=== PATIENT | female | born 1985 | race African-American/Black ===

== ENCOUNTER 2023-04-29 04:30 | Emergency (ER) | payer MEDICAID ==
[~2023-04-29] VITALS: Ht 172.7 cm; Wt 138.8 kg
[2023-04-29 04:52] VITALS: O2SAT 97
[2023-04-29] MEDS ORDERED: LIDOCAINE HCL 1% 20ML VIAL (Pyxis) INJ INFIL ONE (05:30)
[2023-04-29 08:15] VITALS: BP 148/92; PULSE 88; RESP 18; TEMP 98.7
== END 2023-04-29 08:34 | disposition home or self-care (01) ==
LOC: ER 05:20
DX: S01.81XA Laceration without foreign body of other part of head, initial encounter (principal); Y04.0XXA Assault by unarmed brawl or fight, initial encounter; Y93.89 Activity, other specified; Y92.89 Other specified places as the place of occurrence of the external cause; Y99.8 Other external cause status
CPT/HCPCS: 12011; 99282; J3490; Z7610

== ENCOUNTER 2025-04-12 06:18 | Emergency (ER) | payer MEDICAID, OTHER ==
[~2025-04-12] VITALS: Ht 170.2 cm; Wt 109.0 kg
[~2025-04-12 06:18] MED LIST: BACI28OI9 TP; NAPR-1486 MT
[2025-04-12 06:20] VITALS: O2SAT 97
[2025-04-12 08:03] LABS: CLARITY URINE TURBID (CLEAR); COLOR URINE RED (YELLOW); GLUCOSE URINE NEGATIVE (NEGATIVE); KETONES URINE 2+ (NEGATIVE); LEUKOCYTE ESTERASE URINE 1+ (NEGATIVE); NITRITE URINE POSITIVE (NEGATIVE); OCCULT BLOOD URINE 2+ (NEGATIVE); PROTEIN URINE 2+ (NEGATIVE); SPECIFIC GRAVITY URINE 1.042 (1.005-1.030)
[2025-04-12 08:23] LABS: BACTERIA URINE 3+; RBC URINE TNTC /hpf (0-2); SQUAMOUS EPITHELIAL CELL URINE 2+ /lpf (RARE/1+); YEAST URINE NONE SEEN
[2025-04-12] MEDS: PREDNISONE 20MG TABLET PO STA (09:05)
[2025-04-12] MEDS: CEPHALEXIN 250MG CAPSULE PO ONE (09:05)
[2025-04-12] MEDS: ALBUTEROL (0.083%) 2.5MG/3ML NEB HHN STA (09:29)
[2025-04-12 09:30] VITALS: PULSE 96; RESP 22
[2025-04-12] MEDS: IPRATROPIUM BROMIDE (0.02%) 0.5MG/2.5ML NEB HHN STA (09:30)
[2025-04-12] MEDS ORDERED: CEPH500C2 MT (10:51)
[2025-04-12] MEDS ORDERED: ALBU90AE INH (10:51)
[2025-04-12 11:53] VITALS: BP 148/89; PULSE 88; RESP 18; TEMP 36.8; O2SAT 98
== END 2025-04-12 11:53 | disposition home or self-care (01) ==
LOC: ER 06:18
DX: J06.9 Acute upper respiratory infection, unspecified (principal); N39.0 Urinary tract infection, site not specified; I10 Essential (primary) hypertension; F12.90 Cannabis use, unspecified, uncomplicated; Z79.899 Other long term (current) drug therapy
CPT/HCPCS: 81003; 81025; 71045; 94640; 99284; J7512; Z7610 ×3